=== PATIENT | female | born 1995 | race African-American/Black ===

== ENCOUNTER 2017-02-03 01:58 | Emergency (ER) | payer SELFPAY ==
[~2017-02-03] VITALS: Ht 165.1 cm; Wt 61.2 kg
[2017-02-03 02:13] VITALS: BP 128/81
--- NOTE | 2017-02-03 02:15 | NUR ---
PT PRESENTS TO ED WITH C/O HEADACHE, COUGH, VOMITING, DIARRHEA, BLOOD IN STOOL X5 DAYS. PT IS AAOX4, STATED GENERALIZED PAIN 7/10, SOB, AND CHEST PAIN, CLEAR LUNG SOUND, REGUAR HR. TENDER ABD, BOWEL SOUNDS PRESENT, AFRIBRILE, SKIN IS WARM AND DRY TO TOUCH. ABLE TO MOVE ALL EXTREMITIES. VSS. PT POSITIONED FOR COMFORT, HOB ELEVATED, BEDRAILS UP X2, MD MADE AWARE OF PT STATUS.
--- NOTE | 2017-02-03 02:25 | NUR ---
PATIENT TO ER BED 8
[2017-02-03] MEDS ORDERED: ONDANSETRON 4 MG ODT PO ONE (03:15)
--- NOTE | 2017-02-03 03:20 | NUR ---
PT IS EVALUATED BY ER MD AT BEDSIDE.
[2017-02-03] MEDS ORDERED: ALUMINUM HYD/MAG/SIMETHICONE 30 ML, BELLADONNA/PHENOBARBITAL 10 ML, LIDOCAINE VISCOUS 2... PO ONE ×3 (03:25)
[2017-02-03 04:15] VITALS: BP 102/61
--- NOTE | 2017-02-03 04:15 | NUR ---
Patient discharged with v/s stable. Written and verbal after care instructions given and explained. Patient alert, oriented and verbalized understanding of instructions. Ambulatory with steady gait. All questions addressed prior to discharge. ID band removed. Patient advised to follow up with PMD. Rx of ZOFRAN, CIPRO, MOTRIN, NORCO given. Patient educated on indication of medication including possible reaction and side effects. Opportunity to ask questions provided and answered.
== END 2017-02-03 04:15 | disposition home or self-care (01) ==
LOC: MED 01:58
DX: R10.13 Epigastric pain (principal); R11.2 Nausea with vomiting, unspecified; R19.7 Diarrhea, unspecified; F17.200 Nicotine dependence, unspecified, uncomplicated
CPT/HCPCS: 81002; 81025; 99283; S0119